=== PATIENT | female | born 1985 ===

== ENCOUNTER 2016-06-27 18:59 | Emergency (ER) | payer BC ==
[2016-06-27 19:12] VITALS: BP 101/62; PULSE 92; RESP 16; TEMP 100.1; O2SAT 100
--- NOTE | 2016-06-27 20:05 | ED PDOC ---
HPI: Fever Fever Onset Was: 06/27/16 What Antipyretic Given Prior To Arrival: Acetaminophen Recent Sick Contacts: Yes (Son has URI) Have you had recent travel within the past 21 days to any of the following countries: [place], [place], [place] or [place]?: No Does Patient Have Hx Of Febrile Seizures: No Did The Patient Have A Seizure Today: No Symptoms Associated With Fever: Cough, Runny Nose Additional Comments: 31 y/o F with no significant PMHx presents to ED c/o fever since yesterday with max temp of 101.7. She has been taking tylenol PRN that helped her. Admits dry cough and runny nose for the past 2 days. Son has been sick with URI. She states is 13 weeks and is concerned about any harm to the baby becuase of the fever. Denies vaginal bleeding, loss of fluid, pelvic or abd pain, nausea, vomiting, diarrhea, palpitations or headache. <Loi Alfaro - Last Filed: 06/27/16 20:23> Supervising Attending Note <Loi Alfaro - Last Filed: 06/27/16 20:23> - Supervising Attending Note The Documented history was done by the: Physician Field Technical Support Consultant, Attending Physician The documented physical exam was done by the: Physician Field Technical Support Consultant, Attending Physician - Attestation: I have personally seen and examined this patient.: Yes I have fully participated in the care of the patient.: Yes I have reviewed all pertinent clinical information, including history, physical exam and plan: Yes <Janna Patel - Last Filed: 06/27/16 21:35> - Notes: Notes:: DW pt findings. Fever with no respiratory distress. Pt stable for discharge. Offered Tamiflu but pt declined. Course of influenza d/w patient. (Janna Patel) Past Medical History - Medical History PMH: No Chronic Diseases - Surgical History Surgical History: No Surg Hx - Family History Family History: States: Unknown Family Hx - Living Arrangements Living Arrangements: With Family - Social History Current smoker - smoking cessation education provided: No Ex-Smoker (has not smoked in the last 12 months): No Alcohol: None Drugs: Denies - Immunization History Hx Influenza Vaccination: Yes <Loi Alfaro - Last Filed: 06/27/16 20:23> <Janna Patel - Last Filed: 06/27/16 21:35> Vital Signs: Last Vital Signs Temp 100.1 F H 06/27/16 19:08 Pulse 92 H 06/27/16 19:08 Resp 16 06/27/16 19:08 BP 101/62 06/27/16 19:08 Pulse Ox 100 06/27/16 20:23 - Allergies Allergies/Adverse Reactions: Allergies Allergy/AdvReac Type Severity Reaction Status Date / Time No Known Allergies Allergy Verified 06/27/16 19:08 Review of Systems Constitutional: Positive for: Fever, Chills ENT: Positive for: Nose Congestion. Negative for: Ear Pain Cardiovascular: Negative for: Chest Pain, Palpitations Respiratory: Positive for: Cough. Negative for: Shortness of Breath, Wheezing Gastrointestinal: Negative for: Nausea, Vomiting, Abdominal Pain, Diarrhea Genitourinary Female: Negative for: Dysuria, Frequency, Vaginal Discharge, Vaginal Bleeding Skin: Negative for: Rash Neurological: Negative for: Weakness, Numbness, Confusion, Seizures Psych: Negative for: Anxiety, Depression <Loi Alfaro - Last Filed: 06/27/16 20:23> Physical Exam - Reviewed Vital Signs Reviewed: Yes - Physical Exam Appears: Positive for: Well, Non-toxic Head Exam: Positive for: ATRAUMATIC, NORMAL INSPECTION Skin: Positive for: Normal Color Eye Exam: Positive for: Normal appearance, EOMI ENT: Positive for: Pharyngeal Erythema. Negative for: Tonsillar Exudate Neck: Positive for: Normal Cardiovascular/Chest: Positive for: Regular Rate, Rhythm. Negative for: Murmur Respiratory: Positive for: Normal Breath Sounds. Negative for: Crackles, Rales , Rhonchi, Wheezing Gastrointestinal/Abdominal: Positive for: Normal Exam, Bowel Sounds, Soft, Other (Bedside US confirmed FM and heart beats). Negative for: Tenderness Back: Positive for: Normal Inspection. Negative for: L CVA Tenderness, R CVA Tenderness Extremity: Positive for: Normal ROM. Negative for: Pedal Edema, Calf Tenderness Neurologic/Psych: Positive for: Alert, Oriented <Loi Alfaro - Last Filed: 06/27/16 20:23> - ECG O2 Sat by Pulse Oximetry: 100 <Loi Alfaro - Last Filed: 06/27/16 20:23> Medical Decision Making <Loi Alfaro - Last Filed: 06/27/16 20:23> <Janna Patel - Last Filed: 06/27/16 21:35> Medical Decision Making: A: 31 y/o F IUP at 13w, presents with fever and upper resp symptoms. Rule out URI vs Flu vs UTI P: -Influenza A,B test -Rapid strep test -UA -UCx (Loi Alfaro) Disposition - Disposition Disposition Time: 20:15 <Loi Alfaro - Last Filed: 06/27/16 20:23> <Janna Patel - Last Filed: 06/27/16 21:35> - Clinical Impression Clinical Impression: Influenza - Disposition Condition: GOOD Additional Instructions: REST AND DRINK PLENTY OF HYDRATING FLUIDS YOU CAN TAKE EXTRA STRENGTH TYLENOL FOR FEVER RETURN TO ER IMMEDIATELY FOR DIFFICULTY BREATHING, INTRACTABLE VOMITING, FAINTING OR NEAR FAINTING OR ANY OTHER WORRISOME SYMPTOMS. OTHERWISE CALL YOUR COUNTY AGR[facility] AGENT TOMORROW MORNING TO SETUP FOLLOW UP APPOINTMENT FOR REEVALUATION. Instructions: Influenza (ED) Forms: [facility] ED School/Work Excuse
[2016-06-27 22:17] LABS: RBC URINE 6 /hpf (0-3); URINE BACTERIA RARE (<OCC); URINE BILIRUBIN NEGATIVE (NEGATIVE); URINE BLOOD NEGATIVE (NEGATIVE); URINE COLOR YELLOW (YELLOW); URINE GLUCOSE (UA) NEG (Normal); URINE KETONE NEGATIVE (NEGATIVE); URINE LEUKOCYTE ESTERASE LARGE Leu/uL (Negative); URINE PROTEIN NEGATIVE (NEGATIVE); URINE UROBILINOGEN 0.2-1.0 mg/dL (0.2-1.0); WBC URINE 9 /hpf (0-5)
== END 2016-06-27 20:19 | disposition home or self-care (01) ==
LOC: H.ER 18:59
DX: J11.1 Influenza due to unidentified influenza virus with other respiratory manifestations (principal); Z3A.13 13 weeks gestation of pregnancy